=== PATIENT | male | born 1975 | race African-American/Black ===

== ENCOUNTER 2018-03-16 09:13 | Emergency (ER) | payer OTHER ==
[~2018-03-16] VITALS: Ht 157.5 cm; Wt 74.0 kg
[~2018-03-16 09:13] MED LIST: Z.0.NO CURRENT MEDS
[2018-03-16 09:16] VITALS: BP 124/76; PULSE 74; RESP 19; TEMP 98.7; O2SAT 97
[2018-03-16] MEDS ORDERED: SODIUM CHLORIDE 0.9% FLUSH 10 ML FLUSH IVF PRN ×2 (09:30→10:30)
--- NOTE | 2018-03-16 09:36 | PD ---
HPI Chief Complaint: Complaint Time Seen by Provider: 09:24 Travel History International Travel<30 days: No Contact w/Intl Traveler<30days: No Traveled to known affect area: No History of Present Illness HPI The patient is a 42-year-old -[place] male who presents to the emergency department for left scrotal swelling and pain. The patient notes a 2 day history of increasing left scrotal pain and edema. The patient does note he had mild dysuria without any penile discharge several days ago. He now complains of swelling along the left testicle with pain. He denies any current dysuria, frequency, or urgency. He is sexually active. He denies any associated nausea, or trauma to the left testicle. Symptoms are moderate. There are no current alleviating or exacerbating factors. [facility] Social History Alcohol Use: Yes (1/4 BOTTLE OF GIN THIS AM) Tobacco Use: Yes (1/2 PACK DAY X 10 YEARS) Substance Use: No Allergies-Medications (Allergen,Severity, Reaction): Coded Allergies: No Known Allergies (Verified Allergy, Mild, 03/15/06) Reported Meds & Prescriptions Reported Meds & Active Scripts Active Reported No Current Meds (Miscellaneous Medication) [facility] Review of Systems Except as stated in HPI: all other systems reviewed are Neg General / Constitutional: No: Fever Cardiovascular: No: Chest Pain or Discomfort Respiratory: No: Shortness of Breath Gastrointestinal: No: Nausea, Vomiting, Abdominal Pain Genitourinary: Positive: Other (As noted in the history of present illness), No : Dysuria Skin: No Rash Physical Exam Narrative GENERAL: Awake, alert, pleasant 42-year-old male who appears his stated age and is in no acute respiratory distress. SKIN: Focused skin assessment warm/dry. HEAD: Atraumatic. Normocephalic. EYES: No injection or drainage per ENT: No nasal bleeding or discharge. Mucous membranes pink and moist. NECK: Trachea midline. No JVD. GASTROINTESTINAL: Abdomen soft, non-tender, nondistended. No rebound tenderness. Genitourinary: Uncircumcised phallus. Foreskin is withdrawn/retracted, no visible discharge. Right testicle is unremarkable, left testicle is slightly enlarged, tender palpation over the epididymis. Back: No CVA tenderness. MUSCULOSKELETAL: No obvious deformities. No clubbing. No cyanosis. No edema. NEUROLOGICAL: Awake and alert. No obvious cranial nerve deficits. Motor grossly within normal limits. Normal speech. PSYCHIATRIC: Appropriate mood and affect; insight and judgment normal. Data Data Last Documented VS Vital Signs Date Time Temp Pulse Resp B/P (MAP) Pulse Ox O2 Delivery O2 Flow Rate FiO2 03/16/18 09:16 98.7 74 19 124/76 (92) 97 Orders Orders Urinalysis - C+S If Indicated (03/16/18 09:27) Gc And Chlamydia Pcr (03/16/18 09:27) Us Testicles W Doppler (03/16/18 09:27) Sodium Chloride 0.9% Flush (Ns Flush) (03/16/18 09:30) Urine Culture (03/16/18 09:39) Azithromycin (Zithromax) (03/16/18 10:30) Ceftriaxone Inj (Rocephin Inj) (03/16/18 10:30) Sodium Chloride 0.9% Flush (Ns Flush) (03/16/18 10:30) Lidocaine 1% Inj (50 Ml) (Xylocaine 1% I (03/16/18 10:30) Lidocaine Pf 1% Inj (Xylocaine-Mpf 1% In (03/16/18 10:21) Labs Laboratory Tests Test 03/16/18 09:39 Urine Color YELLOW Urine Turbidity CLEAR Urine pH 6.0 Urine Specific [place] 1.022 Urine Protein TRACE mg/dL Urine Glucose (UA) NEG mg/dL Urine Ketones NEG mg/dL Urine Occult Blood SMALL Urine Nitrite NEG Urine Bilirubin NEG Urine Urobilinogen 2.0 MG/DL Urine Leukocyte Esterase MOD Urine RBC 15 /hpf Urine WBC 15 /hpf Urine Mucus FEW /lpf Microscopic Urinalysis Comment CULTURE INDICATED MDM Medical Decision Making Medical Screen Exam Complete: Yes Emergency Medical Condition: Yes Medical Record Reviewed: Yes Interpretation(s) Last Impressions Scrotum Ultrasound 03/16/18926 Signed Impressions: There is normal blood flow and homogeneous echotexture of both testicles. Innum erable tiny calcifications are seen within both testicles characteristic of costa rolithiasis. The epididymis is normal bilaterally. There is a tiny hydrocele on the left. No varicoceles are seen. CONCLUSION: 1. Microlithiasis. 2. Trace left hydrocele. Laboratory Tests Test 03/16/18 09:39 Urine Color YELLOW Urine Turbidity CLEAR Urine pH 6.0 Urine Specific [place] 1.022 Urine Protein TRACE mg/dL Urine Glucose (UA) NEG mg/dL Urine Ketones NEG mg/dL Urine Occult Blood SMALL Urine Nitrite NEG Urine Bilirubin NEG Urine Urobilinogen 2.0 MG/DL Urine Leukocyte Esterase MOD Urine RBC 15 /hpf Urine WBC 15 /hpf Urine Mucus FEW /lpf Microscopic Urinalysis Comment CULTURE INDICATED Differential Diagnosis Differential diagnosis includes orchitis, epididymitis, testicular torsion, hydrocele, varicocele, UTI, STI. Narrative Course A UA was sent to lab. UA gonorrhea/chlamydia PCR was ordered. Ultrasound of the scrotum was obtained. The patient was administered [place] 5 mg orally for pain. UA reveals WBCs and RBCs with leukocyte esterase. Ultrasound reveals microlithiasis of both testicles and small left hydrocele. The patient was administered Rocephin and Zithromax, will be discharged home on doxycycline. Diagnosis Primary Impression: Complicated UTI (urinary tract infection) Additional Impression: Hydrocele Qualified Codes: N43.3 - Hydrocele, unspecified Patient Instructions: General Instructions Additional Instructions: Please provide the patient a copy of his ultrasound results and lab results at discharge. Follow-up with your primary physician. Return if symptoms worsen or progress. Med/Other Pt SpecificInfo: Prescription(s) given Scripts Ibuprofen (Ibuprofen) 600 Mg Tab 600 MG PO Q6H Y for Pain/Inflammation, #20 TAB 0 Refills Prov: Jose Zamudio MD 03/16/18 Doxycycline Hyclate (Doxycycline Hyclate) 100 Mg Cap 100 MG PO BID for Infection, #20 CAP 0 Refills Prov: Jose Zamudio MD 03/16/18 Disposition: DISCHARGE HOME Condition: Stable Jose Zamudio MD Mar 16, 2018 09:36
[2018-03-16 10:11] LABS: BILIRUBIN, URINE NEG (NEG); BLOOD, URINE SMALL (NEG); GLUCOSE,URINE NEG (NEG); KETONE, URINE NEG (NEG); MUCUS URINE FEW /lpf (OCC); NITRITE,URINE NEG (NEG); URINE COLOR YELLOW (YELLW/STRAW); URINE LEUKOCYTE ESTERASE MOD (NEG)
[2018-03-16] MEDS ORDERED: LIDOCAINE HCL 1% PF 2 ML VIAL ONE (10:21)
--- NOTE | 2018-03-16 10:24 | RADRPT ---
EXAM DATE: 03/16/2018 10:12 AM EDT AGE/SEX: 42 years / Male INDICATIONS: Testicular pain. CLINICAL DATA: This is the patient's initial encounter. Patient reports that signs and symptoms have been present for 1 day and indicates a pain score of 8/10. MEDICAL/SURGICAL HISTORY: . Testicular pain. None. COMPARISON: No prior exams available for comparison. MEASUREMENTS (cm x cm x cm): Right Testicle:__4.5 x 3.4 x 2.1 cm Left Testicle:__4.3 x 3.3 x 3.1 cm FINDINGS: There is normal blood flow and homogeneous echotexture of both testicles. Innumerable tiny calcificat ions are seen within both testicles characteristic of microlithiasis. The epididymis is normal bilate rally. There is a tiny hydrocele on the left. No varicoceles are seen. CONCLUSION: 1. Microlithiasis. 2. Trace left hydrocele. Electronically signed by: Chi James MD 03/16/2018 10:23 AM EDT
[2018-03-16] MEDS ORDERED: cefTRIAXone 250 MG VIAL IM ONE (10:30)
[2018-03-16] MEDS ORDERED: LIDOCAINE HCL 1% 50 ML VIAL XX ONE (10:30)
[2018-03-16] MEDS ORDERED: AZITHROMYCIN 250 MG TAB PO ONE (10:30)
[2018-03-16] MEDS ORDERED: DOXY100C PO (12:03)
[2018-03-16] MEDS ORDERED: IBUP-232 PO (12:03)
== END 2018-03-16 12:26 | disposition home or self-care (01) ==
LOC: NEPE 09:13
DX: N39.0 Urinary tract infection, site not specified (principal); N43.3 Hydrocele, unspecified; F17.200 Nicotine dependence, unspecified, uncomplicated
CPT/HCPCS: 76870; 81001; 87086; 87491; 87591; 93975; 96372; 99284; J0696